=== PATIENT | male | born 1990 | race American Indian/Alaskan Native ===

== ENCOUNTER 2019-03-17 16:17 | Emergency (ER) | payer SELFPAY ==
[2019-03-17 16:46] VITALS: BP 116/63
--- NOTE | 2019-03-17 16:49 | Emergency Department Report ---
Chief Complaint: Medical Clearance Stated Complaint: BACK PAIN - HPI History of Present Illness: This is a 28-year-old male nontoxic well in appearance with no signs of distress presents to the ED for a work excuse note. Patient stated he had back pains but has resolved since then and missed work. Patient denies any pain currently. Stated has resolved now and just needs work excuse. Denies any urinary symptoms. Denies any injuries. Patient denies any other symptoms. Denies any fever, c hills, headache, nausea, vomiting, chest pain or SOB. Denies any other complaints. - Exam Physical Exam: no back pain. no CVA tenderness. No urinary symptoms. MSE screening note: Focused history and physical exam performed. Due to findings the following was ordered: ED Medical Decision Making - Medical Decision Making Patient was instructed to Follow-up with a primary care doctor in 3-5 days or if symptoms worsen and continue return to emergency room as soon as possible. At time of discharge, the patient does not seem toxic or ill in appearance. No acute signs of distress noted. Patient agrees to discharge treatment plan of care. No further questions noted by the patient. ED Disposition for MSE Clinical Impression: Encounter to obtain excuse from work Disposition: DC-01 TO HOME OR SELFCARE Is pt being admited?: No Does the pt Need Aspirin: No Condition: Stable Additional Instructions: Follow-up with a primary care doctor in 3-5 days or if symptoms worsen and continue return to emergency room as soon as possible. Referrals: PRIMARY MD KAVYA [Referring] - 3-5 Days KEVIN DE LOS SANTOS MD [Staff Physician] - 3-5 Days [facility] [Outside] - 3-5 Days [facility] [Outside] - 3-5 Days MEME REYNA MD [Staff Physician] - 3-5 Days
== END 2019-03-17 17:06 | disposition home or self-care (01) ==
LOC: ED 16:17
DX: R07.89 Other chest pain (principal)
CPT/HCPCS: 99282